=== PATIENT | male | born 1950 | race Caucasian/White ===

== ENCOUNTER 2018-04-28 15:19 | Emergency (ER) | payer MEDICAID ==
[~2018-04-28] VITALS: Ht 175.3 cm; Wt 82.0 kg
[2018-04-28] MEDS ORDERED: SODIUM CHLORIDE 0.9% 1,000 ML IV ONE (16:01)
[2018-04-28 17:12] LABS: BASOPHILS % 0.4 % (0.0-2.0); EOSINOPHILS % 3.5 % (0.0-5.0); HEMATOCRIT. 35.9 % (42.0-52.0); HEMOGLOBIN. 12.2 g/dL (14.0-18.0); LYMPHOCYTES % 25.1 % (20.0-50.0); MEAN CORPUSCULAR HEMOGLOBIN 26.9 pg (28.0-32.0); MEAN CORPUSCULAR VOLUME 79.3 fL (80.0-94.0); MEAN PLATELET VOLUME 7.1 fl (7.4-10.4); MONOCYTES % 6.3 % (2.0-8.0); NEUTROPHILS % 64.7 % (40.0-76.0); PLATELET 380 x1000/uL (130-400); RED BLOOD CELL COUNT 4.53 mill/uL (4.7-6.1); RED CELL DISTRIBUTION WIDTH 14.2 % (11.6-14.6)
[2018-04-28 17:21] LABS: CHLORIDE 104 mEq/L (98-107)
[2018-04-28 17:23] LABS: PARTIAL THROMBOPLASTIN TIME 26.2 sec (23.4-31.0)
[2018-04-28 21:23] VITALS: BP 144/65
[2018-05-10] MEDS ORDERED: ATOR-2 MT (17:07)
[2018-05-10] MEDS ORDERED: LISI40TA4 MT (17:07)
[2018-05-10] MEDS ORDERED: CLOP75TA33 MT (17:07)
[2018-05-10] MEDS ORDERED: ASA5EC MT (17:07)
[2018-05-10] MEDS ORDERED: NPH,100I SQ ×2 (17:07)
[2018-05-10] MEDS ORDERED: CHOL1CRY2 MC (17:07)
[2018-05-10] MEDS ORDERED: AMLO10TA4 MT (17:07)
== END 2018-04-28 21:25 | disposition home or self-care (01) ==
LOC: ER 15:19
DX: I95.9 Hypotension, unspecified (principal); J45.909 Unspecified asthma, uncomplicated; F32.9 Major depressive disorder, single episode, unspecified; E11.9 Type 2 diabetes mellitus without complications; E78.00 Pure hypercholesterolemia, unspecified; I10 Essential (primary) hypertension; V49.69XA Unspecified car occupant injured in collision with other motor vehicles in traffic accident, initial encounter; Y93.89 Activity, other specified; Y92.89 Other specified places as the place of occurrence of the external cause; Y99.8 Other external cause status
CPT/HCPCS: 36415; 71045; 72170; 80053; 82962; 83880; 84484; 85025; 85610; 85730; 86850; 86900; 86901; 93005; 96360; 96361; 99284; J7030

== ENCOUNTER 2018-05-15 15:26 | Inpatient (IN) | payer OTHER, MEDICAID ==
[~2018-05-15] VITALS: Ht 167.6 cm; Wt 94.3 kg
[~2018-05-15 15:26] MED LIST: AMLO10TA4 MT; ASA5EC MT; ATOR-2 MT; CHOL1CRY2 MC; CLOP75TA33 MT; LISI40TA4 MT; NPH,100I SQ
[2018-05-15] MEDS ORDERED: IOHEXOL-350 100 ML BOTTLE ONE (16:06)
[2018-05-15 16:08] LABS: BASOPHILS % 0.6 % (0.0-2.0); HEMATOCRIT. 37.1 % (42.0-52.0); HEMOGLOBIN. 12.2 g/dL (14.0-18.0); LYMPHOCYTES % 24.1 % (20.0-50.0); MEAN CORPUSCULAR HEMOGLOBIN 26.5 pg (28.0-32.0); MEAN CORPUSCULAR VOLUME 80.6 fL (80.0-94.0); MEAN PLATELET VOLUME 7.3 fl (7.4-10.4); MONOCYTES % 6.9 % (2.0-8.0); NEUTROPHILS % 64.4 % (40.0-76.0); PLATELET 416 x1000/uL (130-400); RED BLOOD CELL COUNT 4.61 mill/uL (4.7-6.1); RED CELL DISTRIBUTION WIDTH 14.9 % (11.6-14.6)
[2018-05-15 16:10] LABS: CHLORIDE 103 mEq/L (98-107)
[2018-05-15 16:12] LABS: PARTIAL THROMBOPLASTIN TIME 28.5 sec (23.4-31.0); PROTHROMBIN TIME 10.5 sec (9.1-11.1)
[2018-05-15 16:18] LABS: ETHANOL BLOOD < 10 mg/dL
[2018-05-15] MEDS ORDERED: ALBUTEROL (0.083%) 2.5MG/3ML NEB HHN ONE (16:30)
[2018-05-15] MEDS ORDERED: SODIUM BICARBONATE 8.4% 1 MEQ/ML 50ML SYR IV ONE (16:30)
[2018-05-15] MEDS ORDERED: SODIUM CHLORIDE 0.9% 1,000 ML IV ONE (16:42)
[2018-05-15] MEDS ORDERED: ASPIRIN 300MG SUPP PR ONE (16:45)
[2018-05-15 18:06] LABS: CLARITY URINE CLEAR (CLEAR); COLOR URINE YELLOW (YELLOW); KETONES URINE NEGATIVE (NEGATIVE); LEUKOCYTE ESTERASE URINE NEGATIVE (NEGATIVE); NITRITE URINE NEGATIVE (NEGATIVE); OCCULT BLOOD URINE NEGATIVE (NEGATIVE); PROTEIN URINE 2+ (NEGATIVE); SPECIFIC GRAVITY URINE 1.057 (1.005-1.030); UROBILINOGEN URINE 0.2 E.U./dL (0.2-1.0)
[2018-05-15 18:19] LABS: *AMPHETAMINES SCREEN URINE NEGATIVE (NEGATIVE); *BARBITURATES SCREEN URINE NEGATIVE (NEGATIVE)
[2018-05-15 18:20] LABS: *BENZODIAZEPINES SCREEN URINE NEGATIVE (NEGATIVE); *COCAINE SCREEN URINE NEGATIVE (NEGATIVE); CANNABINOID URINE SCREEN NEGATIVE (NEGATIVE); METHADONE URINE SCREEN NEGATIVE (NEGATIVE); OPIATES URINE SCREEN NEGATIVE (NEGATIVE)
[2018-05-15 18:21] LABS: PHENCYCLIDINE URINE SCREEN NEGATIVE (NEGATIVE)
[2018-05-15] MEDS ORDERED: ENOXAPARIN 40MG/0.4ML SYR SUBCUT SCH (22:15)
[2018-05-15] MEDS ORDERED: ACETAMINOPHEN 650MG/20.3ML UDC GT PRN (22:15)
[2018-05-15] MEDS ORDERED: ACETAMINOPHEN 650MG SUPP PR PRN (22:15)
[2018-05-15] MEDS ORDERED: MAGNESIUM/ALUMINUM HYDROXIDE/SIMETHICONE 30ML UDC PO PRN (22:15)
[2018-05-15] MEDS ORDERED: ONDANSETRON HCL 4MG/2ML INJ IV PRN (22:15)
[2018-05-15] MEDS ORDERED: NA PHOS,M-B/NA PHOS,DI-BA ENEMA 118ML PR PRN (22:15)
[2018-05-15] MEDS ORDERED: IPRATROPIUM/ALBUTEROL 0.5-3(2.5)MG/3ML NEB INH PRN (22:15)
[2018-05-15] MEDS ORDERED: ACETAMINOPHEN 325MG TABLET PO PRN (22:15)
[2018-05-15] MEDS ORDERED: CLONIDINE 0.1MG TABLET PO PRN (22:15)
[2018-05-15 22:30] VITALS: BP 109/60
[2018-05-15] MEDS ORDERED: DEXTROSE 50% WATER 50ML SYRINGE IV PRN (22:30)
[2018-05-15] MEDS ORDERED: ATORVASTATIN CALCIUM 10MG TABLET PO SCH (22:33)
[2018-05-15] MEDS: CLOPIDOGREL 75MG TABLET PO SCH (23:44)
[2018-05-15] MEDS: SODIUM CHLORIDE 0.9% 1,000 ML IV SCH (23:49)
[2018-05-16] VITALS: BP 114/64
[2018-05-16 04:00] VITALS: BP 114/71
[2018-05-16] MEDS: INSULIN LISPRO 100 UNITS/ML SUBCUT SCH ×3 (06:11→17:40)
[2018-05-16] MEDS: SODIUM CHLORIDE 0.9% INJ 3ML FLUSH IVF SCH ×2 (06:11→13:20)
[2018-05-16] MEDS: BLOOD SUGAR DIAGNOSTIC STRIP TEST SCH ×3 (06:11→17:10)
[2018-05-16 08:00] VITALS: BP 111/70
[2018-05-16] MEDS ORDERED: ENOXAPARIN 40MG/0.4ML SYR SUBCUT SCH (09:00)
[2018-05-16] MEDS ORDERED: ASPIRIN 81MG TABLET PO SCH (09:00)
[2018-05-16] MEDS: CLOPIDOGREL 75MG TABLET PO SCH (09:40)
[2018-05-16 09:53] LABS: BASOPHILS % 0.5 % (0.0-2.0); EOSINOPHILS % 4.6 % (0.0-5.0); HEMATOCRIT. 31.7 % (42.0-52.0); HEMOGLOBIN. 10.3 g/dL (14.0-18.0); LYMPHOCYTES % 7.3 % (20.0-50.0); MEAN CORPUSCULAR HEMOGLOBIN 26.8 pg (28.0-32.0); MEAN CORPUSCULAR VOLUME 82.8 fL (80.0-94.0); MEAN PLATELET VOLUME 7.7 fl (7.4-10.4); MONOCYTES % 5.8 % (2.0-8.0); NEUTROPHILS % 81.8 % (40.0-76.0); PLATELET 282 x1000/uL (130-400); RED BLOOD CELL COUNT 3.83 mill/uL (4.7-6.1); RED CELL DISTRIBUTION WIDTH 15.1 % (11.6-14.6)
[2018-05-16 10:18] LABS: CHLORIDE 107 mEq/L (98-107)
[2018-05-16 10:29] LABS: LDL CHOLESTEROL 46 mg/dL (5-100)
[2018-05-16 10:32] LABS: HDL CHOLESTEROL 23 mg/dL (40-59)
[2018-05-16] MEDS ORDERED: PANTOPRAZOLE 40MG DR TABLET PO SCH (13:15)
[2018-05-16] MEDS ORDERED: HYDROCODONE/ACETAMINOPHEN 5/325MG TABLET PO PRN (13:15)
[2018-05-16] MEDS: SODIUM CHLORIDE 0.9% 1,000 ML IV SCH (15:27)
[2018-05-16 16:00] VITALS: BP 125/37
[2018-05-16] MEDS ORDERED: CLOP75TA16 PO (20:01)
[2018-05-16] MEDS ORDERED: ATOR10TA PO (20:01)
[2018-05-16] MEDS ORDERED: ASPI-1160 PO (20:01)
[2018-05-16] MEDS ORDERED: INSLIS SUBCUT (20:01)
[2018-05-16 20:07] VITALS: BP 125/61
[2018-05-16 20:11] VITALS: BP 125/61
[2018-05-16] MEDS ORDERED: ENOXAPARIN 30MG/0.3ML SYR SUBCUT SCH (21:00)
== END 2018-05-16 21:35 | disposition short-term general hospital (02) | DRG 469 ==
LOC: ER 15:43 → 8WST 17:08 → ENRESERV 20:27
PROVIDERS: ADMIT Family Medicine; ATTEND Family Medicine
DX: N17.9 Acute kidney failure, unspecified (principal); G93.40 Encephalopathy, unspecified; E44.0 Moderate protein-calorie malnutrition; E11.21 Type 2 diabetes mellitus with diabetic nephropathy; R13.10 Dysphagia, unspecified; E87.5 Hyperkalemia; D63.8 Anemia in other chronic diseases classified elsewhere; E11.22 Type 2 diabetes mellitus with diabetic chronic kidney disease; I13.10 Hypertensive heart and chronic kidney disease without heart failure, with stage 1 through stage 4 chronic kidney disease, or unspecified chronic kidney disease; E78.5 Hyperlipidemia, unspecified; F32.9 Major depressive disorder, single episode, unspecified; E86.0 Dehydration; H91.90 Unspecified hearing loss, unspecified ear; J45.909 Unspecified asthma, uncomplicated; I25.10 Atherosclerotic heart disease of native coronary artery without angina pectoris; N18.9 Chronic kidney disease, unspecified; Z79.4 Long term (current) use of insulin; Z83.3 Family history of diabetes mellitus; Z82.49 Family history of ischemic heart disease and other diseases of the circulatory system; Z95.5 Presence of coronary angioplasty implant and graft; Z86.73 Personal history of transient ischemic attack (TIA), and cerebral infarction without residual deficits; Z79.899 Other long term (current) drug therapy; Z79.82 Long term (current) use of aspirin; Z68.33 Body mass index [BMI] 33.0-33.9, adult
CPT/HCPCS: 36415; 70496; 70498; 71045; 80061; 80305; 82962; 84484; 85379; 92610; 93005; 94640; 96361; 96374; 97162; 99291; G0482; J1650; J1815; J3490; J7030; J7611; Q9967; A4315

== ENCOUNTER 2018-10-16 15:37 | Inpatient (IN) | payer MEDICAID ==
[~2018-10-16] VITALS: Ht 170.2 cm; Wt 78.5 kg
[~2018-10-16 15:37] MED LIST changes: +ASPI-1160 PO; +ATOR10TA PO; +CLOP75TA4 PO; +INSLIS SUBCUT
[2018-10-16 16:50] LABS: BASOPHILS % 0.7 % (0.0-2.0); EOSINOPHILS % 2.8 % (0.0-5.0); HEMATOCRIT. 32.3 % (42.0-52.0); HEMOGLOBIN. 10.7 g/dL (14.0-18.0); LYMPHOCYTES % 17.2 % (20.0-50.0); MEAN PLATELET VOLUME 7.2 fl (7.4-10.4); MONOCYTES % 6.6 % (2.0-8.0); NEUTROPHILS % 72.7 % (40.0-76.0); PLATELET 381 x1000/uL (130-400); RED BLOOD CELL COUNT 4.13 mill/uL (4.7-6.1); RED CELL DISTRIBUTION WIDTH 16.9 % (11.6-14.6)
[2018-10-16 16:53] LABS: CHLORIDE 108 mEq/L (98-107)
[2018-10-16 17:05] LABS: CLARITY URINE CLEAR (CLEAR); COLOR URINE YELLOW (YELLOW); KETONES URINE NEGATIVE (NEGATIVE); LEUKOCYTE ESTERASE URINE NEGATIVE (NEGATIVE); NITRITE URINE NEGATIVE (NEGATIVE); OCCULT BLOOD URINE NEGATIVE (NEGATIVE); PH URINE 5.5 (4.5-8.0); PROTEIN URINE 1+ (NEGATIVE); SPECIFIC GRAVITY URINE 1.015 (1.005-1.030); UROBILINOGEN URINE 0.2 E.U./dL (0.2-1.0)
[2018-10-16 17:32] LABS: *AMPHETAMINES SCREEN URINE NEGATIVE (NEGATIVE); *BARBITURATES SCREEN URINE NEGATIVE (NEGATIVE); *BENZODIAZEPINES SCREEN URINE NEGATIVE (NEGATIVE); *COCAINE SCREEN URINE NEGATIVE (NEGATIVE); METHADONE URINE SCREEN NEGATIVE (NEGATIVE); OPIATES URINE SCREEN NEGATIVE (NEGATIVE)
[2018-10-16 17:33] LABS: CANNABINOID URINE SCREEN NEGATIVE (NEGATIVE); PHENCYCLIDINE URINE SCREEN NEGATIVE (NEGATIVE)
[2018-10-16 22:00] VITALS: BP 124/51
[2018-10-16] MEDS ORDERED: ONDANSETRON HCL 4MG/2ML INJ IV PRN (22:30)
[2018-10-16] MEDS ORDERED: LORAZEPAM 2MG/ML CPJ IV PRN (22:30)
[2018-10-16] MEDS ORDERED: HYDROCODONE/ACETAMINOPHEN 5/325MG TABLET PO PRN (22:30)
[2018-10-16] MEDS ORDERED: ACETAMINOPHEN 325MG TABLET PO PRN (22:30)
[2018-10-17] MEDS ORDERED: DEXTROSE 50% WATER 50ML SYRINGE IV PRN (00:30)
[2018-10-17] MEDS ORDERED: LISI-186 PO (01:38)
[2018-10-17] MEDS ORDERED: MAGN400T27 PO ×2 (01:52→01:57)
[2018-10-17] MEDS ORDERED: INSU100I24 SQ (01:52)
[2018-10-17] MEDS ORDERED: OMEG-118 PO (01:57)
[2018-10-17] MEDS ORDERED: METO25TA6 PO (01:57)
[2018-10-17] MEDS ORDERED: FERR325T6 PO (01:57)
[2018-10-17 04:00] VITALS: BP 156/57
[2018-10-17] MEDS: BLOOD SUGAR DIAGNOSTIC STRIP TEST SCH ×2 (05:55→12:40)
[2018-10-17] MEDS ORDERED: MEDICATION NOT ON FORMULARY EA (Metoprolol Tartrate 25 MG) PO SCH (06:00)
[2018-10-17] MEDS ORDERED: METOPROLOL TARTRATE 25MG TABLET PO SCH (06:00)
[2018-10-17 06:05] LABS: BASOPHILS % 0.4 % (0.0-2.0); EOSINOPHILS % 2.8 % (0.0-5.0); HEMATOCRIT. 29.2 % (42.0-52.0); HEMOGLOBIN. 9.9 g/dL (14.0-18.0); MEAN CORPUSCULAR HEMOGLOBIN 26.4 pg (28.0-32.0); MEAN CORPUSCULAR VOLUME 77.8 fL (80.0-94.0); MEAN PLATELET VOLUME 6.9 fl (7.4-10.4); MONOCYTES % 6.5 % (2.0-8.0); NEUTROPHILS % 62.3 % (40.0-76.0); PLATELET 342 x1000/uL (130-400); RED BLOOD CELL COUNT 3.75 mill/uL (4.7-6.1); RED CELL DISTRIBUTION WIDTH 16.4 % (11.6-14.6)
[2018-10-17 07:01] LABS: CHLORIDE 110 mEq/L (98-107)
[2018-10-17 08:00] VITALS: BP 111/57
[2018-10-17] MEDS: INSULIN LISPRO 100 UNITS/ML SUBCUT SCH ×2 (08:10→13:10)
[2018-10-17] MEDS ORDERED: MEDICATION NOT ON FORMULARY EA (Ferrous Sulfate 325 MG) PO SCH (08:10)
[2018-10-17] MEDS: FERROUS SULFATE 325MG TABLET PO SCH ×2 (08:49→13:33)
[2018-10-17] MEDS: MAGNESIUM OXIDE 400MG TABLET PO SCH ×2 (08:49→17:00)
[2018-10-17] MEDS ORDERED: MEDICATION NOT ON FORMULARY EA (Lisinopril 5 MG) PO SCH (09:00)
[2018-10-17] MEDS ORDERED: ENOXAPARIN 40MG/0.4ML SYR SUBCUT SCH (09:00)
[2018-10-17] MEDS ORDERED: AMLODIPINE 10MG TABLET PO SCH (09:00)
[2018-10-17] MEDS ORDERED: CLOPIDOGREL 75MG TABLET PO SCH ×2 (09:00)
[2018-10-17] MEDS ORDERED: LISINOPRIL 5MG TABLET PO SCH (09:00)
[2018-10-17] MEDS ORDERED: ASPIRIN 81MG TABLET PO SCH (09:00)
[2018-10-17] MEDS ORDERED: FISH OIL/OMEGA-3 FATTY ACIDS 1000MG CAPSULE PO SCH (09:00)
[2018-10-17] MEDS ORDERED: ENOXAPARIN 30MG/0.3ML SYR SUBCUT SCH (09:00)
[2018-10-17] MEDS ORDERED: MEDICATION NOT ON FORMULARY EA (Clopidogrel Bisulfate (Plavix) 75 MG) PO SCH (09:00)
[2018-10-17] MEDS ORDERED: INSULIN GLARGINE UD 100 UNITS/ML SYR SUBCUT SCH (10:00)
[2018-10-17 12:00] VITALS: BP 120/52
[2018-10-17 16:00] VITALS: BP 114/50
== END 2018-10-17 17:21 | disposition home or self-care (01) | DRG 47 ==
LOC: ER 15:37 → 7WST 18:34 → EDBEDREQ 18:36 → ENRESERV 21:05 → SUPCPDRO 22:25
PROVIDERS: ADMIT Hospitalist; ATTEND Hospitalist
DX: G45.9 Transient cerebral ischemic attack, unspecified (principal); N17.9 Acute kidney failure, unspecified; E87.8 Other disorders of electrolyte and fluid balance, not elsewhere classified; I10 Essential (primary) hypertension; Z86.73 Personal history of transient ischemic attack (TIA), and cerebral infarction without residual deficits; Z79.899 Other long term (current) drug therapy
CPT/HCPCS: 36415; 70551; 71045; 80305; 82962; 83605; 83735; 83880; 84484; 93005; 99285; J1650; J1815